=== PATIENT | female | born 1970 | race Caucasian/White ===

== ENCOUNTER → 2017-07-11 | Outpatient (CLI) | payer BC ==
[~2017-07-11] MED LIST: CHOL10002 PO; FERR325 PO; FISH1000 PO; HYDACE5 PO; IBUP800 PO; LORA10ER PO; MULVITMIND PO; OXYACE5T PO; PENVK500 PO; PROM25 PO; RXHYDACE PO; SULTRIDS PO
== END | disposition home or self-care (01) ==
LOC: PLD 07:11 → LAB SHORT 07:11
DX: D22.72 Melanocytic nevi of left lower limb, including hip (principal); D22.5 Melanocytic nevi of trunk
CPT/HCPCS: 88305

== ENCOUNTER 2018-09-24 23:22 | Emergency (ER) | payer BC ==
[~2018-09-24] VITALS: Ht 167.6 cm; Wt 79.4 kg
[2018-09-25] MEDS ORDERED: PROG100 (00:22)
[2018-09-25] MEDS ORDERED: ESTR2 PO (00:23)
[2018-09-25 01:00] LABS: BASOPHILS ABSOLUTE AUTO 0.06 K/mm3 (0.00-0.23); BASOPHILS PERCENT AUTO 1 % (0-2); EOSINOPHILS ABSOLUTE AUTO 0.19 K/mm3 (0.00-0.68); EOSINOPHILS PERCENT AUTO 2 % (0-6); Hematocrit 40.9 % (33.0-51.0); Hemoglobin 13.6 g/dL (11.5-16.0); IMMATURE GRAN ABSOLUTE AUTO 0.02 K/mm3 (0.00-0.10); IMMATURE GRAN PERCENT AUTO 0 % (0-1); LYMPHOCYTES PERCENT AUTO 18 % (21-46); MONOCYTES PERCENT AUTO 6 % (4-13); Mean Corpuscular HGB 32.1 pg (26.0-34.0); Mean Corpuscular HGB Conc 33.3 g/dL (31.5-36.5); Mean Corpuscular Volume 97 fL (80-100); NEUTROPHILS ABSOLUTE AUTO 7.46 K/mm3 (1.96-9.15); NEUTROPHILS PERCENT AUTO 74 % (41-73); Platelet Count 241 K/mm3 (150-400); RDW Coefficient Variation 12.5 % (11.7-14.2); RDW Standard Deviation 44.5 fL (35.1-46.3); Red Blood Cell Count 4.24 M/mm3 (3.80-5.20); White Blood Cell Count 10.13 K/mm3 (4.00-11.30)
[2018-09-25 01:21] LABS: Alanine Aminotransfer (ALT/SGP 21 U/L (12-78); Albumin, Blood 4.1 g/dL (3.4-5.0); Albumin/Globulin Ratio 1.2 (0.8-1.8); Alk Phos 49 U/L (50-136); Anion Gap 3 mmol/L (6-16); Aspartate Aminotrans (AST/SGOT 10 U/L (12-37); Bilirubin, Total 0.3 mg/dL (0.1-1.0); Blood Urea Nitrogen 11 mg/dL (8-24); Bun/Creatinine Ratio 16.2 (12.0-20.0); CO2, Blood 29 mmol/L (21-32); Calcium, Blood 8.7 mg/dL (8.5-10.1); Chloride, Blood 110 mmol/L (98-108); Creatinine, Blood 0.68 mg/dL (0.40-1.00); Globulin, Blood 3.3 g/dL (2.2-4.0); Glomerular Filtration Rate >60 (60-); Glucose, Blood 105 mg/dL (70-99); Sodium, Blood 142 mmol/L (136-145); Total Protein, Blood 7.4 g/dL (6.4-8.2); Troponin I <0.015 ng/mL (0.000-0.040)
== END 2018-09-25 04:57 | disposition home or self-care (01) ==
LOC: ER 23:22
PROVIDERS: Physician Assistant
DX: R07.9 Chest pain, unspecified (principal); Z90.710 Acquired absence of both cervix and uterus
CPT/HCPCS: 36415; 71046; 80053; 84484; 85025; 93005; 93010; 99285-25

== ENCOUNTER 2020-11-23 07:46 | Emergency (ER) | payer BC ==
[~2020-11-23] VITALS: Ht 167.6 cm; Wt 65.8 kg
[~2020-11-23 07:46] MED LIST changes: +ESTR2 PO; +PROG100
[2020-11-23] MEDS ORDERED: ONDA4ODT MM (10:13)
[2020-11-23 13:23] LABS: Anion Gap 5 mmol/L (6-16); Blood Urea Nitrogen 10 mg/dL (8-24); Bun/Creatinine Ratio 11.7 (12.0-20.0); CO2, Blood 27 mmol/L (21-32); Calcium, Blood 9.1 mg/dL (8.5-10.1); Chloride, Blood 106 mmol/L (98-108); Creatinine, Blood 0.85 mg/dL (0.40-1.00); Glomerular Filtration Rate >60 (60-); Glucose, Blood 116 mg/dL (70-99); Potassium, Blood 3.9 mmol/L (3.5-5.5); Sodium, Blood 138 mmol/L (136-145)
== END 2020-11-23 14:09 | disposition other institution (70) ==
LOC: ER 07:46
PROVIDERS: Emergency Medicine
DX: U07.1 COVID-19 (principal); R40.4 Transient alteration of awareness; Z91.048 Other nonmedicinal substance allergy status; Z79.899 Other long term (current) drug therapy; Z79.3 Long term (current) use of hormonal contraceptives
CPT/HCPCS: 36415; 80048; 82947; 93005; 93010; 99283-25

== ENCOUNTER → 2023-05-23 | Outpatient (CLI) | payer BC ==
[~2023-05-23] MED LIST changes: +ONDA4ODT MM
== END ==
LOC: LAB SHORT 17:22 → LAB 17:22
DX: R30.0 Dysuria (principal)
CPT/HCPCS: 87086; 87147

== ENCOUNTER → 2024-05-07 | Outpatient (CLI) | payer OTHER | END | disposition home or self-care (01) | LOC: LAB SHORT 10:35 | DX: C43.70 Malignant melanoma of unspecified lower limb, including hip (principal) | CPT/HCPCS: 87086 ==

== ENCOUNTER → 2024-06-26 | Outpatient (CLI) | payer BC | LOC: LAB SHORT 17:16 → LAB 17:16 | DX: R35.0 Frequency of micturition (principal) | CPT/HCPCS: 87086 ==

== ENCOUNTER → 2024-12-25 | Outpatient (CLI) | payer BC | LOC: LAB SHORT 16:01 → LAB 16:01 | DX: R31.0 Gross hematuria (principal) | CPT/HCPCS: 87086 ==